=== PATIENT | female | born 1985 | race Hispanic/Latino ===

== ENCOUNTER 2022-02-04 19:27 | Inpatient (IN) | payer MEDICAID, OTHER ==
[2022-02-04] MEDS ORDERED: LACTATED RINGERS 1,000 ML ONE (20:27)
--- NOTE | 2022-02-04 20:31 | History and Physical Report ---
History of Present Illness Date of examination: 02/04/22 Date of admission: February 04, 2022 Chief complaint: Contractions History of present illness: 36-year-old -0-1-1 at 39+3 who presents in active labor with advanced cervical dilatation. She denies leakage of fluid. The patient's course is complicated by late entry of care at 20 weeks estimated gestational age. The patient is a carrier for cystic fibrosis. She has a history of genital herpes but denies any recent prodrome. She is GBS negative Past History Past Medical History: no pertinent history Past Surgical History: no surgical history Social history: single - Obstetrical History Expected Date of Delivery: 02/08/22 Actual Gestation: 39 Week(s) 3 Day(s) : 3 Para: 1 Hx # Term Pregnancies: 1 Number of Pregnancies: 0 Spontaneous Abortions: 1 Induced : 0 Number of Living Children: 1 Medications and Allergies Allergies Allergy/AdvReac Type Severity Reaction Status Date / Time Sulfa (Sulfonamide Allergy Unknown Verified 03/14/14 15:32 Antibiotics) Home Medications Medication Instructions Recorded Confirmed Last Taken Type Acetaminophen/Codeine [Tylenol #3] 1 tab PO Q6H PRN #10 tab 03/14/14 09/27/14 Unknown Rx Ferrous Sulfate 1 tab PO DAILY 09/27/14 09/27/14 09/26/14 21:00 History 1 Pnv95/Ferrous Fumarate/FA 1 tab PO DAILY 09/27/14 09/27/14 09/26/14 09:00 History [ Vitamins] 1 cephALEXin [Keflex] 500 mg PO Q12H #10 capsule 09/30/14 Unknown Rx Review of Systems All systems: negative Genitourinary: leakage of fluid, contractions - Vital Signs Vital signs: Vital Signs Pulse Pulse Ox 83 99 02/04/22 19:44 02/04/22 19:44 Temp Pulse Resp BP Pulse Ox 98.2 F 76 143/87 98 02/04/22 20:03 02/04/22 20:29 02/04/22 20:16 02/04/22 20:29 - Physical Exam Breasts: Positive: deferred Cardiovascular: Regular rate Lungs: Positive: Clear to auscultation Abdomen: Positive: normal appearance - Obstetrical Cervical Dilatation: 5 Results All other labs normal. Assessment and Plan - Patient Problems (1) Active labor at term Current Visit: Yes Status: Acute Plan to address problem: Admit to labor and delivery
[2022-02-04] MEDS ORDERED: fentaNYL 100 MCG/2 ML INJ IV PRN (20:44)
[2022-02-04] MEDS ORDERED: CARBOPROST TROMETHAMINE 250 MCG/1 ML INJ IM PRN (20:44)
[2022-02-04] MEDS ORDERED: ePHEDrine SULFATE 50 MG/1 ML INJ IV PRN (20:44)
[2022-02-04] MEDS ORDERED: METHYLERGONOVINE MALEATE 0.2 MG/ML VIAL IM PRN (20:44)
[2022-02-04] MEDS ORDERED: miSOPROStol 200 MCG TAB PR PRN (20:44)
[2022-02-04] MEDS ORDERED: MINERAL OIL 30 ML ORAL LIQD PO PRN (20:44)
[2022-02-04] MEDS ORDERED: ACETAMINOPHEN 325 MG TAB PO PRN ×2 (20:44→21:36)
[2022-02-04] MEDS ORDERED: TERBUTALINE 1 MG/1 ML INJ SUB-Q PRN (20:44)
[2022-02-04] MEDS ORDERED: ONDANSETRON 4 MG/2 ML INJ IV PRN ×2 (20:44→21:35)
[2022-02-04] MEDS ORDERED: LOPERAMIDE 2 MG CAP PO PRN (20:44)
[2022-02-04] MEDS ORDERED: LIDOCAINE (2%) 20 MG/1 ML VIAL 20 ML MDV INFILTRATI ONE (20:44)
[2022-02-04] MEDS ORDERED: OXYTOCIN 10 UNIT/1 ML INJ IM PRN (20:44)
[2022-02-04] MEDS ORDERED: BUTORPHANOL 2 MG/1 ML INJ IV PRN (20:44)
[2022-02-04] MEDS ORDERED: LACTATED RINGERS 1,000 ML IV SCH (20:45)
[2022-02-04] MEDS ORDERED: OXYTOCIN DRIP 30 UNITS/500 ML BAG IV SCH ×2 (21:00)
[2022-02-04] MEDS ORDERED: MAGNESIUM HYDROXIDE (MOM) ORAL LIQD UDC PO PRN (21:35)
[2022-02-04] MEDS ORDERED: LANOLIN/ZINC/DIMETHICONE (LANSINOH) 7 GM TP PRN (21:35)
[2022-02-04] MEDS ORDERED: WITCH HAZEL/ GLYCERIN PAD TP PRN (21:35)
[2022-02-04] MEDS ORDERED: PROMETHAZINE 25 MG TAB PO PRN (21:35)
[2022-02-04] MEDS ORDERED: PROMETHAZINE 25 MG RECT SUPP PR PRN (21:35)
[2022-02-04] MEDS ORDERED: diphenhydrAMINE 25 MG CAP PO PRN (21:35)
--- NOTE | 2022-02-04 21:35 | Procedure Note ---
OB Delivery Note - Delivery Date of Delivery: 02/04/22 Surgeon: ROZ NUNEZ Estimated blood loss: 100cc - Vaginal Delivery presentation: vertex Delivery position: OA Delivery monitor: external FHT, external uterine Route of delivery: Delivery placenta: spontaneous Delivery cord: 3 umbilical vessels Episiotomy: none Delivery laceration: none Anesthesia: none Delivery comments: The patient rapidly progressed to complete complete +1. Amniotomy was performed and the patient began pushing. Her delivery was productive of a liveborn male infant with Apgars of 8 and 9 weight 6 pounds 9 ounces. After delivery of the head the shoulders delivered without difficulty. Cord clamping was delayed. The infant was bulb suction. The cord was clamped and cut and the infant was placed on the patient's abdomen. The placenta disc delivered spontaneously intact. No lacerations were noted. Estimated blood loss of 100 mL - Infant A at 1 minute: 8 at 5 minutes: 9 Infant Gender: Male (Weight 6 pounds 9 ounces)
[2022-02-04 22:16] LABS: Hematocrit 36.7 % (30.3-42.9); Hemoglobin 12.9 gm/dl (10.1-14.3); Mean Corpuscular HGB Conc 35 % (30-34); Mean Corpuscular Volume 88 fl (79-97); Platelet Count 346 K/mm3 (140-440); Red Blood Count 4.17 M/mm3 (3.65-5.03); Red Cell Distribution Width 13.1 % (13.2-15.2)
[2022-02-04] MEDS: IBUPROFEN 800 MG TAB PO SCH (23:02)
[2022-02-05] MEDS: HYDROcodone/ACETAMINOPHEN 5-325 MG TAB PO PRN ×2 (04:44→20:26)
[2022-02-05] MEDS: IBUPROFEN 800 MG TAB PO SCH ×3 (06:40→23:17)
[2022-02-05 09:20] LABS: Hematocrit 33.1 % (30.3-42.9)
--- NOTE | 2022-02-05 11:24 | Discharge Summary ---
Providers - Providers Date of Admission: 02/04/22 22:03 Date of discharge: 02/06/22 Attending physician: ROZ NUNEZ Primary care physician: ROZ NUNEZ Hospitalization Reason for admission: active labor Delivery: Episiotomy: none Laceration: none Other procedures: none complications: none Discharge diagnosis: IUP at term delivered baby: male Hospital course: 36-year-old -0-1-1 at 39+3 who presents in active labor with advanced cervical dilatation. She denies leakage of fluid. The patient's course is complicated by late entry of care at 20 weeks estimated gestational age. The patient is a carrier for cystic fibrosis. She has a history of genital herpes but denies any recent prodrome. She is GBS negative. Delivered viable male infant via . No problems at this time. Condition at discharge: Good Disposition: 01 HOME / SELF CARE / HOMELESS - Discharge Diagnoses (1) Status post normal vaginal delivery Status: Acute Plan - Discharge Medications Prescriptions: Ibuprofen [Motrin 800 MG tab] 800 mg PO Q8HR #30 tablet - Provider Discharge Summary Activity: routine, no sex for 6 weeks, no heavy lifting 4 weeks, no strenuous exercise Diet: other Instructions: routine Additional instructions: [] Smoking cessation referral if applicable(refer to patient education folder for contact #) [] Refer to [facility] Booklet Call your doctor immediately for: * Fever > 100.5 * Heavy vaginal bleeding ( >1 pad per hour) * Severe persistent headache * Shortness of breath * Reddened, hot, painful area to leg or breast - Follow up plan Follow up: ROZ NUNEZ MD [Primary Care Provider] - 6 Weeks
[2022-02-06] MEDS: HYDROcodone/ACETAMINOPHEN 5-325 MG TAB PO PRN (04:11)
[2022-02-06] MEDS: IBUPROFEN 800 MG TAB PO SCH (05:21)
[2022-02-06 11:00] VITALS: BP 138/66
== END 2022-02-06 10:30 | disposition home or self-care (01) | DRG 774 ==
LOC: TRG 19:27 → APU 19:31 → TRG 20:44 → LD 21:59 → OB 02-05 01:45
PROVIDERS: ADMIT Obstetrics & Gynecology; ATTEND Obstetrics & Gynecology
PROC: 10E0XZZ Delivery of Products of Conception, External Approach (ICD-10-PCS; principal; 2022-02-04)
PROC: 10907ZC Drainage of Amniotic Fluid, Therapeutic from Products of Conception, Via Natural or Artificial Opening (ICD-10-PCS; 2022-02-04)
DX: O98.32 Other infections with a predominantly sexual mode of transmission complicating childbirth (principal); Z3A.39 39 weeks gestation of pregnancy; Z20.822 Contact with and (suspected) exposure to COVID-19; A60.00 Herpesviral infection of urogenital system, unspecified; Z37.0 Single live birth; Z88.2 Allergy status to sulfonamides
CPT/HCPCS: 36415; 59025; 85014; 85018; 85027; 86850; 86900; 86901; 96360; G0378; J2590; J7120; U0003